=== PATIENT | female | born 1965 | race African-American/Black ===

== ENCOUNTER 2017-12-01 12:14 | Emergency (ER) | payer MEDICAID ==
[~2017-12-01] VITALS: Ht 175.3 cm; Wt 68.0 kg
[2017-12-01] MEDS ORDERED: HYDROCODONE/ACETAMINOPHEN 5/325MG TABLET PO ONE (13:45)
[2017-12-01] MEDS ORDERED: IBUPROFEN 600MG TABLET PO ONE (13:45)
[2017-12-01] MEDS ORDERED: IBUPROFEN 600MG TABLET ONE (14:07)
[2017-12-01 16:43] VITALS: BP 120/88
== END 2017-12-01 16:50 | disposition home or self-care (01) ==
LOC: ER 14:47
DX: S52.592A Other fractures of lower end of left radius, initial encounter for closed fracture (principal); S01.112A Laceration without foreign body of left eyelid and periocular area, initial encounter; W01.0XXA Fall on same level from slipping, tripping and stumbling without subsequent striking against object, initial encounter; Y93.89 Activity, other specified; Y92.89 Other specified places as the place of occurrence of the external cause; Y99.8 Other external cause status
CPT/HCPCS: 12011; 29125; 73090; 73110; 99284